=== PATIENT | male | born 1985 ===

== ENCOUNTER 2024-04-13 13:35 | Emergency (ER) | payer BC, SELFPAY ==
[2024-04-13 14:01] VITALS: BP 124/80
--- NOTE | 2024-04-13 14:03 | ED.GENMED ---
ED Provider Triage
<Jeremy Gannon PA-C - Last Filed: 04/13/24 14:14>
-
Patient seen by provider in Triage?: Seen in Triage
Attestation: A medical screening examination has been initiated by a qualified medical provider. Based on the assessment performed at this time, it has been determined that an emergent medical condition may exist and the patient has been informed
that further medical evaluation and possible additional diagnostic testing may be needed.
HPI: 39-year-old male presents with lower back pain that started after bending over to pull his pants up. He notes left thigh discomfort but denies any bowel or bladder dysfunction. No anesthesia. Vital signs are stable through triage. Defer
workup for provider.
GENERAL: Alert , in no apparent distress
EYE: No visual abnormalities.
NECK: Trachea midline
ENT: No visible abnormalities.
LUNGS: No acute respiratory distress
NEUROLOGICAL: Alert and oriented
SKIN: Skin intact. No visible changes.
MUSCULOSKELETAL: Moving extremities normally
PSYCH: Normal and appropriate interaction.
This is a medical evaluation conducted in person to initiate diagnostic evaluation and provide initial therapeutics. Please see further documentation by the treating clinician.
History of Present Illness
<Jeremy Gannon PA-C - Last Filed: 04/13/24 14:14>
General
Chief Complaint: Back Pain
Time Seen by Provider: 04/13/24 15:33
<Andrae Colon PA-C - Last Filed: 04/13/24 15:52>
General
Source: patient
History of Present Illness
History of Present Illness:
39-year-old male with past medical history of previous TIA, anxiety and panic disorder presenting to the emergency department for evaluation of lower back pain that began earlier this morning when patient bent down to put his pants on and felt
sudden pain within his lower back, pain remains to the lower back but is now radiating to the bilateral anterior thigh and worsens with movement. Patient did not take anything for pain prior to arrival. Denies any fevers, traumatic injuries, focal
weakness or numbness, bowel or urinary incontinence, saddle anesthesia, history of substance use or any other concerns.
Past History
<Andrae Colon PA-C - Last Filed: 04/13/24 15:52>
Past History
ED Past Medical History: CVA and Psychiatric
ED Past Surgical History: Orthopedic
Social History
Tobacco: Non-smoker
Alcohol: None
Drug: None
Personal: Single
Living: with family
Review of Systems
<Andrae Colon PA-C - Last Filed: 04/13/24 15:52>
Review of Systems
All Other Systems: ROS reviewed and negative except as documented in HPI and ROS
Phy Exam
<Andrae Colon PA-C - Last Filed: 04/13/24 15:52>
Physical Exam
Physical Exam:
GENERAL: Alert , in no apparent distress at rest but does appear comfortable with movements
EYE: clear conjunctiva b/l
NECK: Supple
ENT: o/p clr, mmm.
ABDOMEN: Soft, without focal tenderness, no r/g, no cvat
BACK: Normal range of motion, no focal tenderness, no midline bony tenderness, no rashes
NEUROLOGICAL: Alert and oriented, no focal neuro deficits. Patellar deep tendon reflexes intact and equal bilaterally, sensation grossly intact and equal to light touch bilateral lower extremities
SKIN: Warm and dry, skin intact.
MUSCULOSKELETAL: No edema, well perfused. EHL intact bilaterally
PSYCH: Normal and appropriate interaction.
Scores
<Andrae Colon PA-C - Last Filed: 04/13/24 15:52>
Heart Failure Risk
Heart Failure Risk Score: Not Applicable
Heart Score for Chest Pain Patients
STEMI patient?: Not applicable
Withdrawal Assessment of Alcohol
Withdrawal Assessment Completed?: Not applicable
Course
<Jeremy Gannon PA-C - Last Filed: 04/13/24 14:14>
Orders/Labs/Results
Orders:
Orders
04/13/24 14:06
Lumbar Spine Complete, 4 View [CR Lumbar Spine Comp Min 4 Vw*] Urgent
Comment:
Reason For Exam: pain
04/13/24 15:40
Diazepam [Valium] 5 mg PO NOW STA
Ibuprofen [Motrin] 600 mg PO NOW STA
Vital Signs
Initial and Last Documented VS:
Initial Vital Signs
Pulse Resp BP Pulse Ox
78 18 124/80 97
04/13/24 14:01 04/13/24 14:01 04/13/24 14:01 04/13/24 14:01
Last Documented Vital Signs
Pulse Resp BP Pulse Ox
78 18 124/80 97
04/13/24 14:01 04/13/24 14:01 04/13/24 14:01 04/13/24 14:01
<Andrae Colon PA-C - Last Filed: 04/13/24 15:52>
Orders/Labs/Results
Orders:
Orders
04/13/24 14:06
Lumbar Spine Complete, 4 View [CR Lumbar Spine Comp Min 4 Vw*] Urgent
Comment:
Reason For Exam: pain
04/13/24 15:40
Diazepam [Valium] 5 mg PO NOW STA
Ibuprofen [Motrin] 600 mg PO NOW STA
Vital Signs
Initial and Last Documented VS:
Initial Vital Signs
Pulse Resp BP Pulse Ox
78 18 124/80 97
04/13/24 14:01 04/13/24 14:01 04/13/24 14:01 04/13/24 14:01
Last Documented Vital Signs
Pulse Resp BP Pulse Ox
78 18 124/80 97
04/13/24 14:01 04/13/24 14:01 04/13/24 14:01 04/13/24 14:01
<Andrae Colon PA-C - Last Filed: 04/13/24 15:52>
MDM/Problems Addressed
Differential Diagnosis Includes:
Lumbar strain, I do not have concern for neurogenic claudication nor infectious etiology, no symptoms to suggest urinary tract infection/pyelonephritis, no symptoms to suggest acute vascular etiology
MDM/Problems Addressed:
39-year-old male presenting to the ER for evaluation of lower back pain that began while bending forward, now unable to stand up fully straight. Symptoms seem to be most suggestive of a muscle strain. X-ray ordered from triage shows mild
degenerative changes but no other acute findings. Patient did not take anything for symptoms prior to arrival. Will treat with Motrin and Valium here. Prescription for Medrol Dosepak and Valium sent to pharmacy with the Valium to be used as
needed. Stable for discharge home and aware of return precautions.
<Andrae Colon PA-C - Last Filed: 04/13/24 15:52>
*Radiology
Radiology exam reviewed: preliminary read by ED provider (No fracture, degenerative changes noted) and radiology read reviewed
*Pulse Oximetry
Patient hypoxic: no
*Critical Care Note
Total Time (30-74mins, 75-104mins- exclusive of procedures): Not Applicable
ED Attending Note
<Jeremy Gannon PA-C - Last Filed: 04/13/24 14:14>
-
Portions of this chart may have been created with voice recognition software.� Occasional wrong word or��sound alike� substitutions may have occurred due to the inherent limitations of voice recognition software.
Discharge Plan
Departure
Patient Disposition: Home (Routine Discharge)
Date of Disposition: 04/13/24
Time of Disposition: 15:41
Patient with high blood pressure during this ER visit?: No
Discharge Problem:
Dorsalgia of lumbar region
Instructions: Low Back Pain (DC)
Prescriptions:
New
methylprednisolone [Medrol ([place])] 4 mg tablets,dose pack
4 mg PO DIRECTED Qty: 21 0RF
diazepam [Valium] 5 mg tablet
5 mg PO BID PRN (Reason: muscle spasm) Qty: 8 0RF
Interventions
Interventions:
*Risk Screen - Suicide Last Done: 04/13/24 14:01
*General Assessment Last Done: 04/13/24 14:01
*Neglect/Abuse Screening Last Done: 04/13/24 14:01
Discharge Date and Time
Print Language: PAKIST[place]
[2024-04-13] MEDS: MOTRIN 600 MG PO (15:50)
[2024-04-13] MEDS: VALIUM 5 MG PO (15:50)
== END 2024-04-13 16:00 | disposition home or self-care (01) ==
LOC: EMR 13:35
PROVIDERS: EMERGENCY PHYSICIAN Emergency Medicine; FAMILY PHYSICIAN Internal Medicine
DX: M54.50 Low back pain, unspecified (principal); Z86.73 Personal history of transient ischemic attack (TIA), and cerebral infarction without residual deficits
CPT/HCPCS: 99283; 72110